=== PATIENT | female | born 1945 | race Caucasian/White ===

== ENCOUNTER 2020-04-23 17:15 | Observation (INO) | payer MEDICARE, BC ==
[2020-04-23] MEDS ORDERED: Sodium Chloride 0.9% 10 ML Syringe FLUSH PRN (17:32)
--- NOTE | 2020-04-23 17:41 | EDM.PDOC ---
ED HPI GENERAL MEDICAL PROBLEM - General Chief Complaint: Gastrointestinal Problem Stated Complaint: [facility] Time Seen by Provider: 04/23/20 17:26 Source of Information: Reports: Patient, EMS History Limitations: Reports: No Limitations - History of Present Illness INITIAL COMMENTS - FREE TEXT/NARRATIVE: The patient presents by [facility] for hypotension. She said this morning she woke up feeling fine and she took her vitamins a magnesium and vitamin D3 and after that she developed diarrhea. She had multiple episodes of diarrhea today. Before calling EMS she was on the toilet and nearly passed out and she lowered herself to the ground and called 911. When EMS arrived she was 70 systolic. She was given 1.5L of fluid. She feels better now. She has no fever, chills, cough, congestion, runny nose, chest pain, shortness of breath, abdominal pain, nausea or vomiting. She has no medical problems and she only takes vitamins. She does not think she has COVID 19 she has been very careful. She lives in both [place] and [facility]. She has not been in [facility] because of the COVID 19 virus. She has not had antibiotic recently. She has not eaten any bad foods and she has not been around anyone with diarrhea. Onset: Gradual Duration: Hour(s): Severity: Moderate Improves with: Reports: None Worsens with: Reports: None Associated Symptoms: Denies: Chest Pain, Cough, Fever/Chills, Headaches, Josh sea/Vomiting, Shortness of Breath - Related Data Allergies Allergy/AdvReac Type Severity Reaction Status Date / Time Bleach (Sodium Hypochlorite) Allergy Severe Rash Verified 04/23/20 17:23 latex Allergy Severe Rash Verified 04/23/20 17:23 Home Meds: Home Meds Cholecalciferol (Vitamin D3) [Vitamin D3] 2,000 unit PO DAILY 04/23/20 [History] Magnesium Oxide [Magnesium] 400 mg PO DAILY 04/23/20 [History] Zinc 50 mg PO DAILY 04/23/20 [History] hydroCHLOROthiazide [Hydrochlorothiazide] 25 mg PO DAILY 04/23/20 [History] lisinopriL [Lisinopril] 10 mg PO DAILY 04/23/20 [History] metFORMIN [Glucophage] 500 mg PO BID 04/23/20 [History] Social & Family History - Tobacco Use Tobacco Use Status *Q: Never Tobacco User Second Hand Smoke Exposure: No - Caffeine Use Caffeine Use: Reports: None - Recreational Drug Use Recreational Drug Use: No ED ROS GENERAL - Review of Systems Review Of Systems: See Below Constitutional: Reports: Malaise, Weakness, Fatigue. Denies: Fever, Chills HEENT: Reports: No Symptoms Respiratory: Reports: No Symptoms Cardiovascular: Reports: Syncope (near). Denies: Chest Pain Endocrine: Reports: No Symptoms GI/Abdominal: Reports: Diarrhea. Denies: Abdominal Pain, Nausea, Vomiting : Reports: No Symptoms Musculoskeletal: Reports: No Symptoms ED EXAM, GI/ABD - Physical Exam Exam: See Below Exam Limited By: No Limitations General Appearance: Alert, No Apparent Distress Ears: Normal External Exam Nose: Normal Inspection Head: Atraumatic, Normocephalic Neck: Normal Inspection Respiratory/Chest: No Respiratory Distress, Lungs Clear, Normal Breath Sounds Cardiovascular: Regular Rate, Rhythm, No Edema, No Murmur GI/Abdominal Exam: Soft, Non-Tender, No Organomegaly, No Mass Back Exam: Normal Inspection #1 Interpretation EKG Date: 04/23/20 Time: 17:44 Rhythm: NSR Rate (Beats/Min): 69 [place]: Normal P-Wave: Present QRS: Normal ST-T: Normal QT: Normal Course - Vital Signs Last Recorded V/S: Last Vital Signs Temp 96.9 F 04/23/20 17:20 Pulse 71 04/23/20 17:20 Resp 16 04/23/20 17:20 BP 91/50 L 04/23/20 17:20 Pulse Ox 96 04/23/20 17:20 - Orders/Labs/Meds Orders: Active Orders 24 hr Category Date Time Status Cardiac Monitoring [RC] . DIRECTED Care 04/23/20 17:32 Active EKG Documentation Completion [RC] STAT Care 04/23/20 17:33 Active Peripheral IV Care [RC] . DIRECTED Care 04/23/20 17:33 Active C DIFFICILE PCR W/REFLEX [MOLEC] Stat Lab 04/23/20 17:34 Ordered CULTURE BLOOD [BC] Stat Lab 04/23/20 18:31 Ordered CULTURE BLOOD [BC] Stat Lab 04/23/20 18:31 Ordered LACTIC ACID [CHEM] Stat Lab 04/23/20 18:31 Ordered STOOL CULTURE/SHIGA TOXIN [MREF] Stat Lab 04/23/20 17:34 Ordered UA W/MICROSCOPIC [URIN] Stat Lab 04/23/20 17:32 Ordered WBC, STOOL [OP] Stat Lab 04/23/20 17:34 Ordered Lactated Ringers [Ringers, Lactated] 1,000 ml Med 04/23/20 17:45 Active IV .BOLUS Sodium Chloride 0.9% [Saline Flush] Med 04/23/20 17:32 Active 10 ml FLUSH ASDIRECTED PRN Blood Culture x2 Reflex Set [OM.PC] Stat Oth 04/23/20 18:31 Ordered Peripheral IV Insertion Adult [OM.PC] Stat Oth 04/23/20 17:32 Ordered Medication Orders Lactated Ringer's (Ringers, Lactated) 1,000 mls @ 500 mls/hr IV .BOLUS MELE Last Admin: 04/23/20 17:41 Dose: 500 mls/hr Documented by: AL Sodium Chloride (Saline Flush) 10 ml FLUSH ASDIRECTED PRN PRN Reason: Keep Vein Open Last Admin: 04/23/20 17:41 Dose: 10 ml Documented by: AL Labs: Laboratory Tests 04/23/20 04/23/20 04/23/20 Range/Units 17:42 17:50 17:50 WBC 24.13 H (3.98-10.04) K/mm3 RBC 5.17 (3.98-5.22) M/mm3 Hgb 14.3 (11.2-15.7) gm/dl Hct 44.5 (34.1-44.9) % MCV 86.1 (79.4-94.8) fl MCH 27.7 (25.6-32.2) pg MCHC 32.1 L (32.2-35.5) g/dl RDW Std Deviation 45.8 (36.4-46.3) fL Plt Count 364 (182-369) K/mm3 MPV 9.8 (9.4-12.3) fl Neut % (Auto) 89.6 H (34.0-71.1) % Lymph % (Auto) 5.3 L (19.3-51.7) % [place] % (Auto) 4.4 L (4.7-12.5) % Eos % (Auto) 0.2 L (0.7-5.8) Baso % (Auto) 0.2 (0.1-1.2) % Neut # (Auto) 21.60 H (1.56-6.13) K/mm3 Lymph # (Auto) 1.28 (1.18-3.74) K/mm3 [place] # (Auto) 1.07 H (0.24-0.36) K/mm3 Eos # (Auto) 0.05 (0.04-0.36) K/mm3 Baso # (Auto) 0.05 (0.01-0.08) K/mm3 Manual Slide Review Abnormal smear Sodium 138 (136-145) mEq/L Potassium 4.3 (3.5-5.1) mEq/L Chloride 104 (98-107) mEq/L Carbon Dioxide 23 (21-32) mEq/L Anion Gap 15.3 H (5-15) BUN 30 H (7-18) mg/dL Creatinine 1.5 H (0.55-1.02) mg/dL Est Cr Clr Drug Dosing 26.42 mL/min Estimated GFR (MDRD) 34 (>60) mL/min BUN/Creatinine Ratio 20.0 H (14-18) Glucose 110 (83-115) mg/dL Calcium 8.3 L (8.5-10.1) mg/dL Magnesium 2.0 (1.8-2.4) mg/dl Total Bilirubin 0.3 (0.2-1.0) mg/dL AST 16 (15-37) U/L ALT 19 (14-59) U/L Alkaline Phosphatase 80 (46-116) U/L Troponin I < 0.017 (0.00-0.056) ng/mL C-Reactive Protein 0.5 (<1.0) mg/dL Total Protein 6.6 (6.4-8.2) g/dl Albumin 3.0 L (3.4-5.0) g/dl Globulin 3.6 gm/dL Albumin/Globulin Ratio 0.8 L (1-2) SARS-CoV-2 RNA (EVA) Negative (NEGATIVE) Meds: Medications Generic Name Dose Route Start Last Admin Trade Name Freq PRN Reason Stop Dose Admin Lactated Ringer's 1,000 mls @ 500 mls/hr 04/23/20 17:45 04/23/20 17:41 Ringers, Lactated IV 500 mls/hr .BOLUS MELE Administration Sodium Chloride 10 ml 04/23/20 17:32 04/23/20 17:41 Saline Flush FLUSH 10 ml ASDIRECTED PRN Administration Keep Vein Open - Re-Assessments/Exams Free Text/Narrative Re-Assessment/Exam: 04/23/20 17:41 I ordered an IV LR 1L bolus, labs, EKG, COVID 19 test and stool studies. 04/23/20 18:23 Her EKG shows a NSR with nothing acute. 04/23/20 18:29 Her WBC was elevated at 24.13. Her anion gap is elevated at 15.3. Her creatinine is elevated at 1.5. Her GFR is low at 3.4. Her troponin is negative. 04/23/20 18:31 With her WBC being elevated I have ordered blood cultures and lactic acid. I am also waiting for COVID 19 results. 04/23/20 18:55 The COVID 19 test is negative. I do not have a stool sample yet. I feel she needs to be admitted. I called Dr Nelson and he agreed to the admission. Departure - Departure Time of Disposition: 19:00 Disposition: Refer to Observation Condition: Fair Clinical Impression: Dehydration, Near syncope, Renal insufficiency Hypotension Qualifiers: Hypotension type: other hypotension type Qualified Code(s): I95.89 - Other hypotension Diarrhea Qualifiers: Diarrhea type: unspecified type Qualified Code(s): R19.7 - Diarrhea, unspecified - Discharge Information Referrals: PCP,Not In Area [Primary Care Provider] - Forms: ED Department Discharge Sepsis Event Note (ED) - Evaluation Sepsis Screening Result: No Definite Risk - Focused Exam Vital Signs: Vital Signs Temp Pulse Resp BP Pulse Ox 04/23/20 17:20 96.9 F 71 16 91/50 L 96 - My Orders Last 24 Hours: My Active Orders 04/23/20 17:32 Cardiac Monitoring [RC] . DIRECTED UA W/MICROSCOPIC [URIN] Stat Sodium Chloride 0.9% [Saline Flush] 10 ml FLUSH ASDIRECTED PRN Peripheral IV Insertion Adult [OM.PC] Stat 04/23/20 17:33 EKG Documentation Completion [RC] STAT Peripheral IV Care [RC] . DIRECTED 04/23/20 17:34 C DIFFICILE PCR W/REFLEX [MOLEC] Stat STOOL CULTURE/SHIGA TOXIN [MREF] Stat WBC, STOOL [OP] Stat 04/23/20 17:45 Lactated Ringers [Ringers, Lactated] 1,000 ml IV .BOLUS 04/23/20 18:31 CULTURE BLOOD [BC] Stat CULTURE BLOOD [BC] Stat LACTIC ACID [CHEM] Stat Blood Culture x2 Reflex Set [OM.PC] Stat - Assessment/Plan Last 24 Hours: My Active Orders 04/23/20 17:32 Cardiac Monitoring [RC] . DIRECTED UA W/MICROSCOPIC [URIN] Stat Sodium Chloride 0.9% [Saline Flush] 10 ml FLUSH ASDIRECTED PRN Peripheral IV Insertion Adult [OM.PC] Stat 04/23/20 17:33 EKG Documentation Completion [RC] STAT Peripheral IV Care [RC] . DIRECTED 04/23/20 17:34 C DIFFICILE PCR W/REFLEX [MOLEC] Stat STOOL CULTURE/SHIGA TOXIN [MREF] Stat WBC, STOOL [OP] Stat 04/23/20 17:45 Lactated Ringers [Ringers, Lactated] 1,000 ml IV .BOLUS 04/23/20 18:31 CULTURE BLOOD [BC] Stat CULTURE BLOOD [BC] Stat LACTIC ACID [CHEM] Stat Blood Culture x2 Reflex Set [OM.PC] Stat
[2020-04-23] MEDS ORDERED: Lactated Ringers 1,000 ML IV SCH (17:45)
[2020-04-23] MEDS: Lactated Ringers 1,000 ML IV SCH (19:52)
[2020-04-23] MEDS ORDERED: Ondansetron 4 MG/2 ML SDV IVPUSH PRN (21:24)
[2020-04-23] MEDS: Acetaminophen 325 MG Tab PO PRN (22:33)
[2020-04-24] MEDS: Lactated Ringers 1,000 ML IV SCH ×3 (02:48→16:27)
--- NOTE | 2020-04-24 11:39 | PCM.HP.2 ---
H&P History of Present Illness - General Date of Service: 04/24/20 Admit Problem/Dx: Admission Diagnosis/Problem Admission Diagnosis/Problem Dehydration Source of Information: Patient, Provider History Limitations: Reports: No Limitations - History of Present Illness Initial Comments - Free Text/Narative: The patient presents by [facility] for hypotension. She said this morning she woke up feeling fine and she took her vitamins a magnesium and vitamin D3 and after that she developed diarrhea. She had multiple episodes of diarrhea today. Before calling EMS she was on the toilet and nearly passed out and she lowered herself to the ground and called 911. When EMS arrived she was 70 systolic. She was given 1.5L of fluid. She feels better now. She has no feve r, chills, cough, congestion, runny nose, chest pain, shortness of breath, abdominal pain, nausea or vomiting. She has no medical problems and she only takes vitamins. She does not think she has COVID 19 she has been very careful. She lives in both [place] and [facility]. She has not been in [facility] because of the COVID 19 virus. She has not had antibiotic recently. She has not eaten any bad foods and she has not been around anyone with diarrhea. - Related Data Allergies/Adverse Reactions: Allergies Allergy/AdvReac Type Severity Reaction Status Date / Time Bleach (Sodium Hypochlorite) Allergy Severe Rash Verified 04/23/20 20:57 latex Allergy Severe Rash Verified 04/23/20 20:57 Home Medications: Home Meds Cholecalciferol (Vitamin D3) [Vitamin D3] 2,000 unit PO DAILY 04/23/20 [History] Magnesium Oxide [Magnesium] 400 mg PO DAILY 04/23/20 [History] Zinc 50 mg PO DAILY 04/23/20 [History] hydroCHLOROthiazide [Hydrochlorothiazide] 25 mg PO Q3D 04/23/20 [History] lisinopriL [Lisinopril] 10 mg PO DAILY 04/23/20 [History] metFORMIN [Glucophage] 500 mg PO DAILY 04/23/20 [History] Past Medical History HEENT History: Reports: Other (See Below) Other HEENT History: wears glasses; has upper dentures Cardiovascular History: Reports: Hypertension Gastrointestinal History: Reports: GERD Genitourinary History: Reports: None Musculoskeletal History: Reports: None Endocrine/Metabolic History: Reports: Other (See Below) Other Endocrine/Metabolic History: borderline diabetic Dermatologic History: Reports: Cellulitis Other Dermatologic History: smith calf - Past Surgical History HEENT Surgical History: Reports: Cataract Surgery, Tonsillectomy Cardiovascular Surgical History: Reports: None GI Surgical History: Reports: Cholecystectomy, Other (See Below) Other GI Surgeries/Procedures: gastric bypass Female Surgical History: Reports: Hysterectomy Musculoskeletal Surgical History: Reports: Knee Replacement Dermatological Surgical History: Reports: None Social & Family History - Family History Family Medical History: Noncontributory - Tobacco Use Tobacco Use Status *Q: Never Tobacco User Second Hand Smoke Exposure: No - Caffeine Use Caffeine Use: Reports: Coffee Caffeine Use Comment: 2 cups of coffee per day - Recreational Drug Use Recreational Drug Use: No H&P Review of Systems - Review of Systems: Review Of Systems: See Below General: Reports: No Symptoms HEENT: Reports: No Symptoms Pulmonary: Reports: No Symptoms Cardiovascular: Reports: No Symptoms Gastrointestinal: Reports: No Symptoms Genitourinary: Reports: No Symptoms Musculoskeletal: Reports: No Symptoms Skin: Reports: No Symptoms Psychiatric: Reports: No Symptoms Neurological: Reports: No Symptoms Exam - Exam Exam: See Below - Vital Signs Vital Signs: Last Vital Signs Temp 98.1 F 04/24/20 02:50 Pulse 74 04/24/20 08:22 Resp 16 04/24/20 08:22 BP 121/84 04/24/20 08:22 Pulse Ox 96 04/24/20 08:22 Weight: 197 lb 4.8 oz - Exam Quality Assessment: No: Supplemental Oxygen, DVT Prophylaxis General: Alert, Oriented, Cooperative HEENT: Conjunctiva Clear, EOMI, Hearing Intact, Pupils Equal, Pupils Reactive Neck: Supple, Trachea Midline. No: Lymphadenopathy Lungs: Clear to Auscultation, Normal Respiratory Effort Cardiovascular: Regular Rate, Regular Rhythm (Female) Exam: Deferred Rectal (Female) Exam: Deferred Back Exam: Normal Inspection, Full Range of Motion Extremities: Normal Inspection, Normal Range of Motion, Non-Tender, No Pedal Edema, Normal Capillary Refill Peripheral Pulses: 2+: Radial (L), Radial (R), Dorsalis Pedis (L), Dorsalis Pedis (R) Skin: Warm, Dry, Intact Neuro Extensive - Mental Status: Alert, Oriented x3, Normal Mood/Affect, Normal Cognition, Memory Intact Psychiatric: Alert, Normal Affect, Normal Mood - Patient Data Lab Results Last 24 hrs: Laboratory Results - last 24 hr 04/23/20 04/23/20 04/23/20 Range/Units 17:42 17:50 17:50 WBC 24.13 H (3.98-10.04) K/mm3 RBC 5.17 (3.98-5.22) M/mm3 Hgb 14.3 (11.2-15.7) gm/dl Hct 44.5 (34.1-44.9) % MCV 86.1 (79.4-94.8) fl MCH 27.7 (25.6-32.2) pg MCHC 32.1 L (32.2-35.5) g/dl RDW Std Deviation 45.8 (36.4-46.3) fL Plt Count 364 (182-369) K/mm3 MPV 9.8 (9.4-12.3) fl Neut % (Auto) 89.6 H (34.0-71.1) % Lymph % (Auto) 5.3 L (19.3-51.7) % [place] % (Auto) 4.4 L (4.7-12.5) % Eos % (Auto) 0.2 L (0.7-5.8) Baso % (Auto) 0.2 (0.1-1.2) % Neut # (Auto) 21.60 H (1.56-6.13) K/mm3 Lymph # (Auto) 1.28 (1.18-3.74) K/mm3 [place] # (Auto) 1.07 H (0.24-0.36) K/mm3 Eos # (Auto) 0.05 (0.04-0.36) K/mm3 Baso # (Auto) 0.05 (0.01-0.08) K/mm3 Manual Slide Review Abnormal smear Sodium 138 (136-145) mEq/L Potassium 4.3 (3.5-5.1) mEq/L Chloride 104 (98-107) mEq/L Carbon Dioxide 23 (21-32) mEq/L Anion Gap 15.3 H (5-15) BUN 30 H (7-18) mg/dL Creatinine 1.5 H (0.55-1.02) mg/dL Est Cr Clr Drug Dosing 26.42 mL/min Estimated GFR (MDRD) 34 (>60) mL/min BUN/Creatinine Ratio 20.0 H (14-18) Glucose 110 (83-115) mg/dL Lactic Acid (0.4-2.0) mmol/L Calcium 8.3 L (8.5-10.1) mg/dL Magnesium 2.0 (1.8-2.4) mg/dl Total Bilirubin 0.3 (0.2-1.0) mg/dL AST 16 (15-37) U/L ALT 19 (14-59) U/L Alkaline Phosphatase 80 (46-116) U/L Troponin I < 0.017 (0.00-0.056) ng/mL C-Reactive Protein 0.5 (<1.0) mg/dL Total Protein 6.6 (6.4-8.2) g/dl Albumin 3.0 L (3.4-5.0) g/dl Globulin 3.6 gm/dL Albumin/Globulin Ratio 0.8 L (1-2) Urine Color (Yellow) Urine Appearance (Clear) Urine pH (5.0-8.0) Ur Specific [place] (1.005-1.030) Urine Protein (Negative) Urine Glucose (UA) (Negative) Urine Ketones (Negative) Urine Occult Blood (Negative) Urine Nitrite (Negative) Urine Bilirubin (Negative) Urine Urobilinogen (0.2-1.0) Ur Leukocyte Esterase (Negative) U Hyaline Cast (Auto) (0-5) /lpf Urine RBC (0-5) /hpf Urine WBC (0-5) /hpf Ur Squamous Epith Cells (0-5) /hpf Ur Transition Epith Cell (0-5) Urine Bacteria (FEW) /hpf Broad Casts (0-5) /hpf Urine Mucus (FEW) /hpf SARS-CoV-2 RNA (EVA) Negative (NEGATIVE) 04/23/20 04/23/20 04/24/20 Range/Units 19:10 22:14 08:25 WBC 7.42 (3.98-10.04) K/mm3 RBC 4.37 (3.98-5.22) M/mm3 Hgb 12.0 D (11.2-15.7) gm/dl Hct 37.9 (34.1-44.9) % MCV 86.7 (79.4-94.8) fl MCH 27.5 (25.6-32.2) pg MCHC 31.7 L (32.2-35.5) g/dl RDW Std Deviation 45.1 (36.4-46.3) fL Plt Count 292 (182-369) K/mm3 MPV 9.6 (9.4-12.3) fl Neut % (Auto) 74.5 H (34.0-71.1) % Lymph % (Auto) 17.1 L (19.3-51.7) % [place] % (Auto) 6.3 (4.7-12.5) % Eos % (Auto) 1.6 (0.7-5.8) Baso % (Auto) 0.4 (0.1-1.2) % Neut # (Auto) 5.52 (1.56-6.13) K/mm3 Lymph # (Auto) 1.27 (1.18-3.74) K/mm3 [place] # (Auto) 0.47 H (0.24-0.36) K/mm3 Eos # (Auto) 0.12 (0.04-0.36) K/mm3 Baso # (Auto) 0.03 (0.01-0.08) K/mm3 Manual Slide Review Sodium (136-145) mEq/L Potassium (3.5-5.1) mEq/L Chloride (98-107) mEq/L Carbon Dioxide (21-32) mEq/L Anion Gap (5-15) BUN (7-18) mg/dL Creatinine (0.55-1.02) mg/dL Est Cr Clr Drug Dosing mL/min Estimated GFR (MDRD) (>60) mL/min BUN/Creatinine Ratio (14-18) Glucose (83-115) mg/dL Lactic Acid 2.3 H* (0.4-2.0) mmol/L Calcium (8.5-10.1) mg/dL Magnesium (1.8-2.4) mg/dl Total Bilirubin (0.2-1.0) mg/dL AST (15-37) U/L ALT (14-59) U/L Alkaline Phosphatase (46-116) U/L Troponin I (0.00-0.056) ng/mL C-Reactive Protein (<1.0) mg/dL Total Protein (6.4-8.2) g/dl Albumin (3.4-5.0) g/dl Globulin gm/dL Albumin/Globulin Ratio (1-2) Urine Color Yellow (Yellow) Urine Appearance Clear (Clear) Urine pH 5.5 (5.0-8.0) Ur Specific [place] 1.025 (1.005-1.030) Urine Protein Negative (Negative) Urine Glucose (UA) Negative (Negative) Urine Ketones Trace H (Negative) Urine Occult Blood Negative (Negative) Urine Nitrite Negative (Negative) Urine Bilirubin Negative (Negative) Urine Urobilinogen 0.2 (0.2-1.0) Ur Leukocyte Esterase Trace H (Negative) U Hyaline Cast (Auto) 10-20 H (0-5) /lpf Urine RBC 0-5 (0-5) /hpf Urine WBC 0-5 (0-5) /hpf Ur Squamous Epith Cells 5-10 H (0-5) /hpf Ur Transition Epith Cell 0-5 (0-5) Urine Bacteria Moderate H (FEW) /hpf Broad Casts 0-5 (0-5) /hpf Urine Mucus Many H (FEW) /hpf SARS-CoV-2 RNA (EVA) (NEGATIVE) 04/24/20 Range/Units 08:25 WBC (3.98-10.04) K/mm3 RBC (3.98-5.22) M/mm3 Hgb (11.2-15.7) gm/dl Hct (34.1-44.9) % MCV (79.4-94.8) fl MCH (25.6-32.2) pg MCHC (32.2-35.5) g/dl RDW Std Deviation (36.4-46.3) fL Plt Count (182-369) K/mm3 MPV (9.4-12.3) fl Neut % (Auto) (34.0-71.1) % Lymph % (Auto) (19.3-51.7) % [place] % (Auto) (4.7-12.5) % Eos % (Auto) (0.7-5.8) Baso % (Auto) (0.1-1.2) % Neut # (Auto) (1.56-6.13) K/mm3 Lymph # (Auto) (1.18-3.74) K/mm3 [place] # (Auto) (0.24-0.36) K/mm3 Eos # (Auto) (0.04-0.36) K/mm3 Baso # (Auto) (0.01-0.08) K/mm3 Manual Slide Review Sodium 140 (136-145) mEq/L Potassium 3.8 (3.5-5.1) mEq/L Chloride 104 (98-107) mEq/L Carbon Dioxide 24 (21-32) mEq/L Anion Gap 15.8 H (5-15) BUN 21 H (7-18) mg/dL Creatinine 1.1 H (0.55-1.02) mg/dL Est Cr Clr Drug Dosing 36.02 mL/min Estimated GFR (MDRD) 49 (>60) mL/min BUN/Creatinine Ratio 19.1 H (14-18) Glucose 107 (83-115) mg/dL Lactic Acid (0.4-2.0) mmol/L Calcium 8.5 (8.5-10.1) mg/dL Magnesium 1.8 (1.8-2.4) mg/dl Total Bilirubin 0.3 (0.2-1.0) mg/dL AST 14 L (15-37) U/L ALT 19 (14-59) U/L Alkaline Phosphatase 75 (46-116) U/L Troponin I (0.00-0.056) ng/mL C-Reactive Protein 1.8 H* (<1.0) mg/dL Total Protein 6.4 (6.4-8.2) g/dl Albumin 2.9 L (3.4-5.0) g/dl Globulin 3.5 gm/dL Albumin/Globulin Ratio 0.8 L (1-2) Urine Color (Yellow) Urine Appearance (Clear) Urine pH (5.0-8.0) Ur Specific [place] (1.005-1.030) Urine Protein (Negative) Urine Glucose (UA) (Negative) Urine Ketones (Negative) Urine Occult Blood (Negative) Urine Nitrite (Negative) Urine Bilirubin (Negative) Urine Urobilinogen (0.2-1.0) Ur Leukocyte Esterase (Negative) U Hyaline Cast (Auto) (0-5) /lpf Urine RBC (0-5) /hpf Urine WBC (0-5) /hpf Ur Squamous Epith Cells (0-5) /hpf Ur Transition Epith Cell (0-5) Urine Bacteria (FEW) /hpf Broad Casts (0-5) /hpf Urine Mucus (FEW) /hpf SARS-CoV-2 RNA (EVA) (NEGATIVE) Result Diagrams: 04/24/20 08:25 04/24/20 08:25 Wong Results Last 24 hrs: Microbiology 04/23/20 19:10 Anaerobic Blood Culture - Final Blood - Venous - Lab Draw 04/23/20 19:00 Anaerobic Blood Culture - Final Blood - Venous Sepsis Event Note - Evaluation Sepsis Screening Result: No Definite Risk - Focused Exam Vital Signs: Vital Signs Temp Pulse Resp BP Pulse Ox 04/24/20 08:22 74 16 121/84 96 04/24/20 02:50 98.1 F 73 14 117/62 98 04/24/20 00:32 79 121/48 L 92 L 04/24/20 00:30 97.9 F 75 16 122/96 H 97 - Problem List (1) Dehydration SNOMED Code(s): 87409085 ICD Code: E86.0 - DEHYDRATION Status: Acute Priority: High Current Visit: Yes (2) Diarrhea SNOMED Code(s): 85534409 ICD Code: R19.7 - DIARRHEA, UNSPECIFIED Status: Acute Priority: High Current Visit: Yes Qualifiers: Diarrhea type: unspecified type Qualified Code(s): R19.7 - Diarrhea, unspecified (3) Hypotension SNOMED Code(s): 97298591 ICD Code: I95.9 - HYPOTENSION, UNSPECIFIED Status: Acute Priority: High Current Visit: Yes Qualifiers: Hypotension type: other hypotension type Qualified Code(s): I95.89 - Other hypotension (4) Near syncope SNOMED Code(s): 450225345 ICD Code: R55 - SYNCOPE AND COLLAPSE Status: Acute Priority: High Current Visit: Yes (5) Renal insufficiency SNOMED Code(s): 918474447, 294891319 ICD Code: N28.9 - DISORDER OF KIDNEY AND URETER, UNSPECIFIED Status: Acute Priority: High Current Visit: Yes Problem List Initiated/Reviewed/Updated: Yes Orders Last 24hrs: Active Orders 24 hr Category Date Time Status Patient Status [ADT] Routine ADT 04/23/20 19:11 Active Bedrest [RC] BID Care 04/23/20 21:24 Active Cardiac Monitoring [RC] . DIRECTED Care 04/23/20 17:32 Active Regular Diet [DIET] Diet 04/24/20 Breakfast Active Chest 2V [CR] Routine Exams 04/24/20 07:53 Taken C DIFFICILE PCR W/REFLEX [MOLEC] Stat Lab 04/23/20 17:34 Ordered CULTURE BLOOD [BC] Stat Lab 04/23/20 19:00 Results CULTURE BLOOD [BC] Stat Lab 04/23/20 19:10 Results STOOL CULTURE/SHIGA TOXIN [MREF] Stat Lab 04/23/20 17:34 Ordered WBC, STOOL [OP] Stat Lab 04/23/20 17:34 Ordered Acetaminophen [TylenoL] Med 04/23/20 22:24 Active 650 mg PO Q4H PRN Lactated Ringers [Ringers, Lactated] 1,000 ml Med 04/23/20 19:45 Active IV ASDIRECTED Ondansetron [Zofran] Med 04/23/20 21:24 Active 4 mg IVPUSH Q6H PRN Sodium Chloride 0.9% [Saline Flush] Med 04/23/20 17:32 Active 10 ml FLUSH ASDIRECTED PRN Blood Culture x2 Reflex Set [OM.PC] Stat Oth 04/23/20 18:31 Ordered Peripheral IV Insertion Adult [OM.PC] Stat Oth 04/23/20 17:32 Ordered Code Status [Resuscitation Status] Routine Resus Stat 04/23/20 21:23 Ordered Medication Orders Acetaminophen (Tylenol) 650 mg PO Q4H PRN PRN Reason: Pain (mild 1-3) Last Admin: 04/23/20 22:33 Dose: 650 mg Documented by: JOSTIN Lactated Ringer's (Ringers, Lactated) 1,000 mls @ 150 mls/hr IV ASDIRECTED MELE Last Admin: 04/24/20 09:16 Dose: 150 mls/hr Documented by: Infusion: 04/24/20 09:16 Dose: 150 mls/hr Documented by: Admin: 04/24/20 02:48 Dose: 150 mls/hr Documented by: Infusion: 04/24/20 02:33 Dose: 150 mls/hr Documented by: Admin: 04/23/20 19:52 Dose: 150 mls/hr Documented by: EVONCOU Ondansetron HCl (Zofran) 4 mg IVPUSH Q6H PRN PRN Reason: Nausea/Vomiting Sodium Chloride (Saline Flush) 10 ml FLUSH ASDIRECTED PRN PRN Reason: Keep Vein Open Last Admin: 04/23/20 17:41 Dose: 10 ml Documented by: AL Assessment/Plan Comment:: 04/24/20 History of 5 hours of loose watery stools that started yesterday. She contributes this to taking high doses of magnesium, vitamin D, and zinc to prevent Covid. She states this is something new that she has started and that this was the first time she took this combination on an empty stomach. States t hat she did not have a syncopal episode and that after the fifth loose stool she felt dizzy and slid herself to the ground from the toilet. Her initial white blood count was elevated at 24.13, her anion gap 15.3, creatinine 1.5, GFR 34, and troponin was negative. I suspect that this elevated white count was due to a stress response and dehydration. She had received 1.5 L of IV fluids in the ambulance in route to the hospital and another liter of lactated Ringer's in the emergency department and has had maintenance IV fluids running all night on the floor. Still waiting for micro results on blood cultures. And lactic acid was slightly elevated at 2.3. However UA was unremarkable and chest x-ray showed no evidence for acute pulmonary disease. Patient has been afebrile since her admit to the floor and she denies any further diarrhea stools since she was at home. She also denies nausea and vomiting and any syncope or near syncopal episodes. Repeat lab work revealsWBC 7.42, anion gap 15.8, BUN 21, and creatinine 1.1, and C-reactive protein 1.8. Plan will be to monitor the patient till after lunch depending on how she feels it is likely she will be able to be discharged to home as she is having no further diarrhea episodes and she is tolerating her diet just fine.
[2020-04-24] MEDS: LISINOPRIL 10 MG PO SCH (12:37)
[2020-04-24] MEDS: CHOLECALCIFEROL 2000 UNIT PO SCH (12:41)
[2020-04-24] MEDS: Acetaminophen 325 MG Tab PO PRN (21:18)
[2020-04-25] MEDS: Lactated Ringers 1,000 ML IV SCH (04:40)
[2020-04-25] MEDS: CHOLECALCIFEROL 2000 UNIT PO SCH (08:00)
[2020-04-25] MEDS: LISINOPRIL 10 MG PO SCH (08:00)
[2020-04-25] MEDS ORDERED: Enoxaparin 40 MG/0.4 ML Syringe SUBCUT SCH (09:00)
--- NOTE | 2020-04-25 09:18 | PCM.DCSUM1 ---
Discharge Summary - Hospital Course HPI Initial Comments: The patient presents by [facility] for hypotension. She said this morning she woke up feeling fine and she took her vitamins a magnesium and vitamin D3 and after that she developed diarrhea. She had multiple episodes of diarrhea today. Before calling EMS she was on the toilet and nearly passed out and she lowered herself to the ground and called 911. When EMS arrived she was 70 systolic. She was given 1.5L of fluid. She feels better now. She has no fever, chills, cough, congestion, runny nose, chest pain, shortness of breath, abdominal pain, nausea or vomiting. She has no medical problems and she only takes vitamins. She does not think she has COVID 19 she has been very careful. She lives in both [place] and [facility]. She has not been in [facility] because of the COVID 19 virus. She has not had antibiotic recently. She has not eaten any bad foods and she has not been around anyone with diarrhea. Diagnosis: Stroke: No - Discharge Data Discharge Date: 04/25/20 (Admit date: 04/23/20) Discharge Disposition: Home, Self-Care 01 Condition: Good - Referral to Home Health Primary Care Physician: PCP Not In Area - Discharge Diagnosis/Problem(s) (1) Dehydration SNOMED Code(s): 50318157 ICD Code: E86.0 - DEHYDRATION Status: Acute Priority: High Current Visit: Yes (2) Diarrhea SNOMED Code(s): 93031247 ICD Code: R19.7 - DIARRHEA, UNSPECIFIED Status: Acute Priority: High Current Visit: Yes Qualifiers: Diarrhea type: unspecified type Qualified Code(s): R19.7 - Diarrhea, unspecified (3) Hypotension SNOMED Code(s): 88539531 ICD Code: I95.9 - HYPOTENSION, UNSPECIFIED Status: Acute Priority: High Current Visit: Yes Qualifiers: Hypotension type: other hypotension type Qualified Code(s): I95.89 - Other hypotension (4) Near syncope SNOMED Code(s): 512911651 ICD Code: R55 - SYNCOPE AND COLLAPSE Status: Acute Priority: High Current Visit: Yes (5) Renal insufficiency SNOMED Code(s): 650074875, 166895311 ICD Code: N28.9 - DISORDER OF KIDNEY AND URETER, UNSPECIFIED Status: Acute Priority: High Current Visit: Yes - Patient Summary/Data Hospital Course: 04/24/20 History of 5 hours of loose watery stools that started yesterday. She contributes this to taking high doses of magnesium, vitamin D, and zinc to prevent Covid. She states this is something new that she has started and that this was the first time she took this combination on an empty stomach. States that she did not have a syncopal episode and that after the fifth loose stool she felt dizzy and slid herself to the ground from the toilet. Her initial white blood count was elevated at 24.13, her anion gap 15.3, creatinine 1.5, GFR 34, and troponin was negative. I suspect that this elevated white count was due to a stress response and dehydration. She had received 1.5 L of IV fluids in the ambulance in route to the hospital and another liter of lactated Ringer's in the emergency department and has had maintenance IV fluids running all night on the floor. Still waiting for micro results on blood cultures. And lactic acid was slightly elevated at 2.3. However UA was unremarkable and chest x-ray showed no evidence for acute pulmonary disease. Patient has been afebrile since her admit to the floor and she denies any further diarrhea stools since she was at home. She also denies nausea and vomiting and any syncope or near syncopal episodes. Repeat lab work revealsWBC 7.42, anion gap 15.8, BUN 21, and creatinine 1.1, and C-reactive protein 1.8. Plan will be to monitor the patient till after lunch depending on how she feels it is likely she will be able to be discharged to home as she is having no further diarrhea episodes and she is tolerating her diet just fine. 04/25/20 After eating lunch yesterday, patient felt nauseated. She however received some Zofran and felt better and then tolerated her evening meal. This morning she states she slept well last night and feels much better. Lab work is unre markable. Vital signs remained stable. Blood cultures show no growth after 1 day. She will be discharged to home with instructions to discontinue magnesium and zinc. - Patient Instructions Diet: Usual Diet as Tolerated - Discharge Plan *PRESCRIPTION DRUG MONITORING PROGRAM REVIEWED*: No *COPY OF PRESCRIPTION DRUG MONITORING REPORT IN PATIENT AMADEO: No Home Medications: Home Meds Cholecalciferol (Vitamin D3) [Vitamin D3] 2,000 unit PO DAILY 04/23/20 [History] Zinc 50 mg PO DAILY 04/23/20 [History] hydroCHLOROthiazide [Hydrochlorothiazide] 25 mg PO Q3D 04/23/20 [History] lisinopriL [Lisinopril] 10 mg PO DAILY 04/23/20 [History] metFORMIN [Glucophage] 500 mg PO DAILY 04/23/20 [History] Oxygen Therapy Mode: Room Air Patient Handouts: Dehydration, Adult, [id number] Referrals: Nagi Stallings MD [Ordering Only Provider] - - Discharge Summary/Plan Comment DC Time >30 min.: No - General Info Date of Service: 04/25/20 Admission Dx/Problem (Free Text: Admission Diagnosis/Problem Admission Diagnosis/Problem Dehydration Subjective Update: Feels much better. Denies nausea or diarrhea stools. Is tolerating her diet. Functional Status: Reports: Pain Controlled, Tolerating Diet, Ambulating, Urinating - Review of Systems General: Reports: No Symptoms HEENT: Reports: No Symptoms Pulmonary: Reports: No Symptoms Cardiovascular: Reports: No Symptoms Gastrointestinal: Reports: No Symptoms Genitourinary: Reports: No Symptoms Musculoskeletal: Reports: No Symptoms Skin: Reports: No Symptoms Neurological: Reports: No Symptoms Psychiatric: Reports: No Symptoms - Patient Data Vitals - Most Recent: Last Vital Signs Temp 98.1 F 04/25/20 03:39 Pulse 73 04/25/20 03:39 Resp 16 04/25/20 03:39 BP 132/64 04/25/20 08:00 Pulse Ox 93 L 04/25/20 03:39 Weight - Most Recent: 199 lb 3.2 oz I&O - Last 24 hours: Intake & Output 04/24/20 04/25/20 04/25/20 22:59 06:59 14:59 Intake Total 2031 1038 Output Total 1000 900 Balance 1031 138 Lab Results - Last 24 hrs: Laboratory Results - last 24 hr 04/25/20 04/25/20 Range/Units 06:06 06:06 WBC 6.00 (3.98-10.04) K/mm3 RBC 4.00 (3.98-5.22) M/mm3 Hgb 10.9 L (11.2-15.7) gm/dl Hct 35.1 (34.1-44.9) % MCV 87.8 (79.4-94.8) fl MCH 27.3 (25.6-32.2) pg MCHC 31.1 L (32.2-35.5) g/dl RDW Std Deviation 45.4 (36.4-46.3) fL Plt Count 264 (182-369) K/mm3 MPV 10.2 (9.4-12.3) fl Neut % (Auto) 65.8 (34.0-71.1) % Lymph % (Auto) 23.3 (19.3-51.7) % Andrews % (Auto) 6.7 (4.7-12.5) % Eos % (Auto) 3.5 (0.7-5.8) Baso % (Auto) 0.7 (0.1-1.2) % Neut # (Auto) 3.95 (1.56-6.13) K/mm3 Lymph # (Auto) 1.40 (1.18-3.74) K/mm3 Andrews # (Auto) 0.40 H (0.24-0.36) K/mm3 Eos # (Auto) 0.21 (0.04-0.36) K/mm3 Baso # (Auto) 0.04 (0.01-0.08) K/mm3 Sodium 142 (136-145) mEq/L Potassium 4.2 (3.5-5.1) mEq/L Chloride 107 (98-107) mEq/L Carbon Dioxide 25 (21-32) mEq/L Anion Gap 14.2 (5-15) BUN 16 (7-18) mg/dL Creatinine 1.1 H (0.55-1.02) mg/dL Est Cr Clr Drug Dosing 36.02 mL/min Estimated GFR (MDRD) 49 (>60) mL/min BUN/Creatinine Ratio 14.5 (14-18) Glucose 120 H (83-115) mg/dL Calcium 8.3 L (8.5-10.1) mg/dL Magnesium 1.7 L (1.8-2.4) mg/dl Total Bilirubin 0.2 (0.2-1.0) mg/dL AST 12 L (15-37) U/L ALT 17 (14-59) U/L Alkaline Phosphatase 63 (46-116) U/L C-Reactive Protein 0.9 (<1.0) mg/dL Total Protein 6.0 L (6.4-8.2) g/dl Albumin 2.6 L (3.4-5.0) g/dl Globulin 3.4 gm/dL Albumin/Globulin Ratio 0.8 L (1-2) MARCO Results - Last 24 hrs: Microbiology 04/23/20 19:10 Aerobic Blood Culture - Preliminary Blood - Venous - Lab Draw NO GROWTH AFTER 1 DAY Anaerobic Blood Culture - Final 04/23/20 19:00 Aerobic Blood Culture - Preliminary Blood - Venous NO GROWTH AFTER 1 DAY Anaerobic Blood Culture - Final Med Orders - Current: Current Medications Acetaminophen (Tylenol) 650 mg PO Q4H PRN PRN Reason: Pain (mild 1-3) Last Admin: 04/24/20 21:18 Dose: 650 mg Documented by: Enoxaparin Sodium (Lovenox) 40 mg SUBCUT DAILY [facility] Last Admin: 04/25/20 08:01 Dose: 40 mg Documented by: Hydrochlorothiazide (Hydrochlorothiazide) 25 mg PO Q3D MELE Lisinopril (Prinivil) 10 mg PO DAILY [facility] Last Admin: 04/25/20 08:00 Dose: 10 mg Documented by: Ondansetron HCl (Zofran) 4 mg IVPUSH Q6H PRN PRN Reason: Nausea/Vomiting Last Admin: 04/24/20 12:58 Dose: 4 mg Documented by: Cholecalciferol ( Vitamin D3) 2,000 Units Capsule 0 each PO DAILY [facility] Last Admin: 04/25/20 08:00 Dose: 2,000 each Documented by: Sodium Chloride (Saline Flush) 10 ml FLUSH ASDIRECTED PRN PRN Reason: Keep Vein Open Last Admin: 04/23/20 17:41 Dose: 10 ml Documented by: Discontinued Medications Lactated Ringer's (Ringers, Lactated) 1,000 mls @ 500 mls/hr IV .BOLUS [facility] Last Admin: 04/23/20 17:41 Dose: 500 mls/hr Documented by: Lactated Ringer's (Ringers, Lactated) 1,000 mls @ 75 mls/hr IV ASDIRECTED [facility] Last Admin: 04/25/20 04:40 Dose: 75 mls/hr Documented by: - Exam Quality Assessment: Denies: Supplemental Oxygen, DVT Prophylaxis General: Reports: Alert, Oriented, Cooperative, No Acute Distress HEENT: Reports: Pupils Equal, Pupils Reactive, Mucous Membr. Moist/Humble Neck: Reports: Supple, Trachea Midline. Denies: Lymphadenopathy Lungs: Reports: Normal Respiratory Effort, Crackles (Crackles noted to the bases bilaterally) Cardiovascular: Reports: Regular Rate, Regular Rhythm, No Murmurs GI/Abdominal Exam: Normal Bowel Sounds, Soft, Non-Tender, No Distention (Female) Exam: Deferred Rectal (Female) Exam: Deferred Back Exam: Reports: Normal Inspection, Full Range of Motion Extremities: Normal Inspection, Normal Range of Motion, Non-Tender, No Pedal Edema, Normal Capillary Refill Skin: Reports: Warm, Dry, Intact Neurological: Reports: No New Focal Deficit Psy/Mental Status: Reports: Alert, Normal Affect, Normal Mood
[2020-04-25] MEDS ORDERED: FLU Vacc QV2020-21(65YR UP)/PF 240 MCG/0.7 ML Syringe IM ONE (11:30)
[2020-04-26] MEDS ORDERED: HYDROCHLOROTHIAZIDE 25 MG PO SCH (09:00)
--- NOTE | 2020-04-27 14:27 | CR ---
PROCEDURE INFORMATION: Exam: XR Chest, 2 Views Exam date and time: 04/24/2020 8:40 AM Age: 74 years old Clinical indication: Abnormal findings; Abnormal diagnostic tests; Abnormal ekg; Patient HX: Elevated wbc TECHNIQUE: Imaging protocol: XR of the chest Views: 2 views. COMPARISON: No relevant prior studies available. FINDINGS: Tubes, catheters and devices: Surgical clips overlie the left upper quadrant. Lungs: Unremarkable. No consolidation. Pleural space: Unremarkable. No pleural effusion. No pneumothorax. Heart/Mediastinum: Unremarkable. No cardiomegaly. Diaphragm: The right hemidiaphragm is mildly elevated. Bones/joints: Degenerative changes involve the spine. IMPRESSION: No evidence for acute pulmonary disease. Thank you for allowing us to participate in the care of your patient. Dictated and Authenticated by: Rex Pierre MD 04/24/2020 10:00 AM Central Time ([place] & [place]) [facility]
== END 2020-04-25 14:30 | disposition home or self-care (01) ==
LOC: JD.ED 17:15 → JD.MS 19:11
PROVIDERS: ADMIT Internal Medicine; ATTEND Internal Medicine
DX: R19.7 Diarrhea, unspecified (principal); I10 Essential (primary) hypertension; K21.9 Gastro-esophageal reflux disease without esophagitis; E86.0 Dehydration; R55 Syncope and collapse; N28.9 Disorder of kidney and ureter, unspecified; Z20.828 Contact with and (suspected) exposure to other viral communicable diseases; Z91.040 Latex allergy status; Z79.899 Other long term (current) drug therapy
CPT/HCPCS: 36415; 71046; 80053; 81001; 83605; 83735; 84484; 85025; 86140; 87040; 90662; 93005; 96361; 96372; 96374; 99285; A9270; G0008; G0378; J1650; J2405; J7120; U0002; 93010; 99284